=== PATIENT | male | born 1975 | race Caucasian/White ===

== ENCOUNTER 2023-04-09 03:56 | Day surgery (SDC) | payer OTHER ==
[2023-04-05 15:21] VITALS: BMI 27.3
[2023-04-09] MEDS ORDERED: MIDAZOLAM HCL 2 MG/2 ML SINGLE DOSE VIAL ONE (13:10)
[2023-04-09] MEDS ORDERED: ONDANSETRON 4 MG/2 ML VIAL ONE (13:39)
[2023-04-09] MEDS ORDERED: KETOROLAC TROMETHAMINE 30 MG/1 ML VIAL ONE (13:39)
[2023-04-09 14:47] VITALS: RESP 18
[2023-04-09 15:57] VITALS: BP 132/78; PULSE 60; TEMP 98
== END 2023-04-09 15:30 | disposition home or self-care (01) ==
LOC: JASU-SURG 03:56
PROVIDERS: ATTEND Urology
PROC: 0TF4XZZ Fragmentation in Left Kidney Pelvis, External Approach (ICD-10-PCS; principal; 2023-04-09 12:30)
DX: N20.0 Calculus of kidney (principal)